=== PATIENT | male | born 1965 | race Caucasian/White ===

== ENCOUNTER 2016-11-12 20:56 | Inpatient (IN) ==
[2016-11-12] MEDS ORDERED: ATIVAN IV ONE (21:00)
[2016-11-12 21:40] LABS: BASO% 0.2 % (0.0-0.8); EOS# 0.01 X1000 (0.0-0.7); EOS% 0.1 % (0.0-10.0); HEMATOCRIT 36.5 % (42.0-52.0); HEMOGLOBIN 12.3 g/dL (14.0-18.0); LYMPH# 0.77 X1000 (1.2-3.4); LYMPH% 6.3 % (20.5-51.1); MANUAL DIFF NEEDED? NO; MCH 36.1 PG (27-31); MCHC 33.7 g/dL (33-37); MONO# 1.36 X1000 (0.11-0.59); MONO% 11.1 % (1.7-9.3); MPV 10.3 FL (7.4-10.4); NEUT% 82.3 % (42.2-75.2); PLT 230 X1000 (130-400); RBC 3.41 XMIL (4.7-6.1)
[2016-11-12 21:42] LABS: AGAP 15; ALBUMIN 4.1 g/dL (3.5-5.0); ALKALINE PHOSPHATASE 48 U/L (32-122); BUN 18 mg/dL (8-22); CALCIUM 9.5 mg/dL (8.8-10.2); CHLORIDE 103 mmol/L (98-107); COSMO 281; GOT 43 U/L (10-34); GPT 36 U/L (10-44); LIPASE 39 U/L (13-60); MAGNESIUM 1.4 mg/dL (1.5-2.7); POTASSIUM 3.5 mmol/L (3.5-5.1); SODIUM 140 mmol/L (136-145); TCO2 22 mmol/L (25-35); TOTAL BILIRUBIN 0.74 mg/dL (0.20-1.00); TOTAL PROTEIN 7.9 g/dL (6.3-8.3)
[2016-11-12] MEDS ORDERED: LABETALOL IV ONE (21:51)
[2016-11-12] MEDS ORDERED: MAGNESIUM SULFATE 2 GM/S.W.I. 2 GM/50 ML IVPB IV ONE (21:52)
--- NOTE | 2016-11-12 21:54 | PROVIDER DOCUMENTATION ---
This chart was entered by Kevin Lopez Scribe, acting as scribe for Con Marin MD. [id number] Abuse/Overdose - General Stated Complaint: etoh withdrawals Time Seen by Provider: 11/12/16 21:00 Source: patient, police Allergies/Adverse Reactions: Allergies Allergy/AdvReac Type Severity Reaction Status Date / Time No Known Allergies Allergy Verified 05/10/16 13:46 Home Medications: Home Medication List Medication Instructions Recorded Confirmed Last Taken Type Famotidine [Pepcid] 20 mg PO BID #30 tablet 05/10/16 Unknown Rx Tramadol [Ultram] 50 mg PO TID PRN PRN #30 tablet 05/10/16 Unknown Rx - History of Present Illness-Drug/Alcohol Nature of Presenting Problem: Pt is a 51 yom who presents to ER from detention with CC of etoh withdrawals. Pt states that he normally drinks 2 pints of alcohol per day, was arrested yesterday, and developed tachycardia and tremors this evening. This episode of drinking or use began:: this evening Severity: reports: moderate Situational problems related to:: reports: N/A Psychiatric Complaints: reports: other (DT) Associated Symptoms: reports: anxiety, muscle aches, nausea, weakness. denies: back/neck pain, chest pain, diarrhea, fatigue, vomiting Any injuries associated with this episode of intoxication?: No Similar Symptoms Previously?: Yes Recently seen or treated by another doctor?: No Review of Systems - Adult - REVIEW OF SYSTEMS - ADULT Constitutional: denies: chills, fever, fatique, night sweats, weight gain, weight loss Eyes: reports: no symptoms reported Ears, Nose, Mouth & Throat: reports: no symptoms reported Cardiovascular: reports: no symptoms reported Respiratory: reports: no symptoms reported Gastrointestinal: reports: nausea, poor appetite. denies: abdominal pain, hematemesis, constipation, diarrhea, difficulty swallowing, frequent heartburn, rectal bleeding, vomiting Genitourinary: reports: no symptoms reported Musculoskeletal: reports: muscle aches. denies: bone pain, back pain, frequent leg cramps, joint pain, joint swelling, muscle weakness, neck pain Integumentary: reports: no symptoms reported Neurological: reports: no symptoms reported Psychiatric: reports: no symptoms reported Endocrine: reports: no symptoms reported Hematologic/Lymphatic: reports: no symptoms reported Allergic/Immunologic: reports: no symptoms reported All Other Systems: Reviewed and Negative Past History - Adult - PAST MEDICAL HISTORY-ADULT Review of Records: reports: Nursing Assessment Review, Medications Reviewed Cardiovascular: reports: HTN - IMMUNIZATION STATUS Childhood Immunizations: See Nurse Assessment Flu Vaccine: See Nurse Assessment Physical Exam-General - PHYSICAL EXAM-ADULT Initial Vital Signs Reviewed: Yes - CONSTITUTIONAL General Appearance: appears well, alert, moderate distress - RESPIRATORY Respiratory: chest non-tender, lungs clear, normal breath sounds, no pleuratic chest pain, no respiratory distress, no accessory muscle use. negative: respiratory distress, decreased breath sounds, accessory muscle use, wheezing - CARDIOVASCULAR Cardiovascular: normal peripheral pulses, tachycardia. negative: regular rate, rhythm, bradycardia, irregularly irregular - GASTROINTESTINAL (ABDOMEN) Abdominal Exam: normal bowel sounds, non tender, soft, no organomegaly, no pulsatile mass. negative: guarding, rebound, tenderness - MUSCULOSKELETAL Extremity: other (tremulous). negative: deformity, erythema, inflammation, swelling, tenderness - PSYCHIATRIC Psych/Mental Status: normal thought content, normal thought process, oriented x 3, anxious, disheveled. negative: normal mood/affect Progress - PLAN OF CARE/RESULTS Progress/Plan/Lab Results: Vital Signs - 8 hr 11/12/16 21:00 Temperature 98.6 F Pulse Rate 96 H Respiratory Rate 18 Blood Pressure 163/95 O2 Sat by Pulse Oximetry 94 L Laboratory Results - last 24 hr 11/12/16 11/12/16 21:08 21:08 WBC 12.30 H RBC 3.41 L Hgb 12.3 L Hct 36.5 L MCV 107.0 H MCH 36.1 H MCHC 33.7 RDW Std Deviation 12.0 Plt Count 230 MPV 10.3 Neut % (Auto) 82.3 H Lymph % (Auto) 6.3 L [place] % (Auto) 11.1 H Eos % (Auto) 0.1 Baso % (Auto) 0.2 Neut # (Auto) 10.14 H Lymph # (Auto) 0.77 L [place] # (Auto) 1.36 H Eos # (Auto) 0.01 Baso # (Auto) 0.02 Sodium 140 Potassium 3.5 Chloride 103 Carbon Dioxide 22 L Anion Gap 15 BUN 18 Creatinine 0.9 Estimated GFR/1.73 m2 > 60 BUN/Creatinine Ratio 20 Glucose 93 Calculated Osmolality 281 Calcium 9.5 Magnesium 1.4 L Total Bilirubin 0.74 AST 43 H ALT 36 Alkaline Phosphatase 48 Total Protein 7.9 Albumin 4.1 Globulin 3.8 Albumin/Globulin Ratio 1.1 Lipase 39 Orders Category Date Time Status CBC WITH ELECTRONIC DIFF [HEME] Stat Lab 11/12/16 21:08 Completed CMP [COMPREHENSIVE METABOLIC PANEL] [CHEM] Stat Lab 11/12/16 21:08 Completed LIPASE [CHEM] Stat Lab 11/12/16 21:08 Completed MAGNESIUM [CHEM] Stat Lab 11/12/16 21:08 Completed Labetalol Med 11/12/16 21:51 Discontinued 100 mg IV NOW ONE Lorazepam [Ativan] Med 11/12/16 21:00 Discontinued 2 mg IV NOW ONE Magnesium Sulfate 2 gm/S.w.i. [Magnesium Sulfate 2 gm/S Med 11/12/16 21:52 Active .w.i] 2 gm in 50 ml IV NOW Result Diagrams: 11/12/16 21:08 11/12/16 21:08 - REASSESSMENT Reassessment #1 Time Reassessed: 21:53 (pt was talking to people who were not in the room) Status: other Departure - Departure Date of Disposition Decision: 11/12/16 Time of Disposition Decision: 21:53 DIAGNOSIS: Alcohol withdrawal delirium Disposition: ADMITTED INPATIENT 09 Certified Medical Emergency: Emergent Condition: Fair - Critical Care Note This patient required my direct & personal management of CC.: No This chart was documented by the indicated scribe, (Kevin Lopez Scribe) and accurately reflects the services I performed and decisions made by me, Con Skinner MD, as attested by the provider's signature.
[2016-11-12] MEDS ORDERED: FOLIC ACID 1 MG in NS 50 ML IV ONE (22:57)
[2016-11-12] MEDS ORDERED: ZOFRAN IV PRN (22:57)
[2016-11-12] MEDS ORDERED: SODIUM CHLORIDE 0.9% INJ SCH (22:57)
[2016-11-12] MEDS ORDERED: NS 1,000 ML IV ONE (22:57)
[2016-11-12] MEDS: THIAMINE 100 MG in NS 50 ML IV SCH (23:56)
[2016-11-13] MEDS: SODIUM CHLORIDE 0.9% INJ SCH ×2 (00:03→23:12)
[2016-11-13] MEDS: LOVENOX SUBQ SCH ×3 (00:03→22:13)
[2016-11-13] MEDS: NEXIUM IV SCH ×2 (00:05→23:12)
[2016-11-13] MEDS: ATIVAN IV PRN ×7 (00:06→23:12)
[2016-11-13] MEDS: NS 1,000 ML IV SCH ×5 (00:46→18:35)
--- NOTE | 2016-11-13 00:48 | HISTORY AND PHYSICAL ---
PRIMARY CARE PHYSICIAN: None. CHIEF COMPLAINT: Visual hallucinations and getting restless. HISTORY OF PRESENT STAY: Patient is a 52-year-old, male with a past medical history of hypertension. History is taken from ER notes and from ER physician, Dr. Lisa henry because this patient is not able to provide any information because he is still sleepy because of Ativan that he received in the ER. Apparently, he is a known chronic alcohol abuse. He usually apparently takes 3 pints of of vodka daily. He was arrested yesterday and [facility], so today this patient was brought to the hospital because he was becoming very restless and having some visual hallucinations. No seizures reported there in the [facility] or here in the hospital. We are going to admit this patient to the hospital for alcohol withdrawal. At the time of my dictation, he has received already 2 g of Ativan, so he is very sleepy, but calmed down. PAST MEDICAL HISTORY: Hypertension. PAST SURGICAL HISTORY, FAMILY HISTORY, ALLERGIES AND REVIEW OF SYSTEMS: Not possible to obtain because of the medical situation of the patient. As per ER note, the patient before took Ativan, reported that he used cocaine and marijuana and also drinks alcohol regularly daily. PHYSICAL EXAMINATION: VITAL SIGNS: Temperature 98.6 degrees, heart rate 99, respiratory rate 18, blood pressure 166/104, O2 saturation 94% on room air. GENERAL EXAMINATION: This is a 52-year-old, male, lying in bed, sedated, in no acute distress. HEENT: Head is normocephalic, atraumatic. Anicteric sclerae. Pale conjunctivae. Mucous membranes moist. NECK: Supple. No JVD noted. No carotid bruits. No lymphadenopathy. No thyromegaly. CARDIOVASCULAR: S1, S2 heard. No murmurs, gallops, or rubs. Regular rate and rhythm. RESPIRATORY: Clear bilaterally to auscultation. No work of breathing or using accessory muscles. ABDOMEN: Soft. Bowel sounds present. No organomegaly. EXTREMITIES: No clubbing, cyanosis, or edema. Peripheral pulses present in both legs. NEUROLOGICAL: Patient is sedated and not possible to perform any neurological examination. Pupils equal, round and reactive to light and accommodation. Patient withdrawn to pain. LABORATORY DATA: White cell count 12.30, hemoglobin 12.3, hematocrit 36.5, platelets at 30,000. BMP is okay with magnesium 1.4 and phosphorus 2.9. ASSESSMENT AND PLAN: Alcohol withdrawal. Patient is going to be admitted to the hospital. He is going to be sent to the intensive care unit and Ativan will be given every 1 hour p.r.n. for agitation. We are going to provide aggressive fluid resuscitation with normal saline at 150 mL/h after 2 L of normal saline bolus. We are going to put this patient on seizure precautions and aspiration precautions. We are going to replete electrolytes as needed. Further recommendations to follow according to the clinical situation of the patient. cc: Mukul Quigley MD MTDD
[2016-11-13 01:27] LABS: BILIRUBIN URINE NEGATIVE (NEGATIVE); BLOOD URINE NEGATIVE (NEGATIVE); COLOR YELLOW; GLUCOSE URINE NEGATIVE (NEGATIVE); LEUKOCYTES URINE NEGATIVE (NEGATIVE); NITRITE URINE NEGATIVE (NEGATIVE); PROTEIN URINE NEGATIVE (NEGATIVE); SP GRAVITY URINE 1.018; TURBIDITY URINE CLEAR (CLEAR); UR EPITHELIAL CELLS <10 /HPF (<10); URINE BACTERIA NEGATIVE /HPF; URINE CULTURE NEEDED? NO; URINE MICRO REVIEW NEEDED? NO; URINE RBC <10 /HPF (<10); URINE SOURCE CATH; URINE WBC <10 /HPF (<10); UROBILINOGEN URINE NORMAL (NORMAL)
[2016-11-13] MEDS: STERILE WATER INJ. INJ PRN ×3 (01:37→23:12)
[2016-11-13] MEDS: GEODON IM PRN ×4 (01:37→23:12)
[2016-11-13] MEDS: LABETALOL IV PRN (01:48)
[2016-11-13 04:26] LABS: AGAP 14; BUN 14 mg/dL (8-22); CALCIUM 8.5 mg/dL (8.8-10.2); CHLORIDE 105 mmol/L (98-107); COSMO 282; POTASSIUM 3.4 mmol/L (3.5-5.1); SODIUM 141 mmol/L (136-145); TCO2 22 mmol/L (25-35)
[2016-11-13 05:46] LABS: UR AMPHETAMINES QUAL NONE DETECTED (NONE DETECT); UR BARBITUATES QUAL NONE DETECTED (NONE DETECT); UR BENZODIAZEPIN QUAL PRESUMPTIVE POSITIVE (NONE DETECT); UR CANNABINOIDS QUAL NONE DETECTED (NONE DETECT); UR COCAINE QUAL NONE DETECTED (NONE DETECT); UR METHADONE QUAL NONE DETECTED (NONE DETECT); UR OPIATES QUAL NONE DETECTED (NONE DETECT); UR OXYCODONE QUAL NONE DETECTED (NONE DETECT); UR PCP QUAL NONE DETECTED (NONE DETECT)
[2016-11-13] MEDS: LIBRIUM PO SCH ×3 (08:01→17:12)
[2016-11-13 08:37] LABS: BASO% 0.1 % (0.0-0.8); EOS# 0.01 X1000 (0.0-0.7); EOS% 0.1 % (0.0-10.0); HEMATOCRIT 36.3 % (42.0-52.0); LYMPH# 1.12 X1000 (1.2-3.4); MANUAL DIFF NEEDED? YES; MCH 36.3 PG (27-31); MCHC 33.1 g/dL (33-37); MCV 109.7 FL (81-99); MONO# 2.07 X1000 (0.11-0.59); MONO% 12.9 % (1.7-9.3); NEUT% 79.9 % (42.2-75.2); PLT 213 X1000 (130-400); RBC 3.31 XMIL (4.7-6.1)
[2016-11-13 09:18] LABS: LYMPHS 9 % (21-51); MONO 10 % (1-9)
--- NOTE | 2016-11-13 09:59 | PROGRESS NOTE ---
DATE: 11/13/2016 SUBJECTIVE: A 51-year-old who was admitted yesterday. Long history of alcoholism. Apparently has a history of hypertension. Taken to the emergency room and the emergency room physician, Dr. Marin, the patient was not able to provide any information. He was still very sleepy. He got some Ativan in the emergency room. Noted to be a chronic alcohol abuser. Usually, apparently drinks 3 pints of vodka a day. Arrested yesterday and sent to residential. Today, brought into the hospital because he is very restless and visual hallucination, appears to be going into delirium tremens. Moved to the unit where he is in 4 point restraints. Program Analyst is here supervising. PHYSICAL EXAMINATION: General: On examination today, he is sleeping in 4 point restraints. Has a mask on because he has been spitting. Vital Signs: Temperature 97.5 degrees, pulse 100, respirations 24, and blood pressure 118/81. HEENT: Pupils are equal and round. CVP less than 6 cm. Lungs: Clear in all lung parikh anterolateral. Cardiovascular Examination: Regular rhythm and rate without murmur or S3. Is and Os: Urine output 2800 mL. Abdomen: Soft. Skin: Is warm and dry. LABORATORY DATA: White count 16,060, hematocrit 36, platelet count 213,000. Sodium 141, potassium 3.4, chloride 105, bicarb 22, BUN 14, creatinine 0.7, magnesium was 2, calcium 8.5. Urinalysis presumptive positive for benzodiazepines but he, I think, had been given some Ativan. ASSESSMENT AND PLAN: Alcohol withdrawal. It has been a couple of days, at least 72 hours. I think he is in delirium tremens at this point with hallucinations, very agitated. Continue benzodiazepine. He is on Librium 50 mg three times a day. We will use Ativan as needed. He is getting enough fluid, normal saline at 150 mL an hour. Getting thiamine and a multivitamin with folic acid 1 mg daily. He was supplemented some magnesium. Continue present course. We will supplement a little bit of potassium as needed. cc: Ayo Hackett MD
[2016-11-13] MEDS: POTASSIUM CHLORIDE 20 MEQ/SWI 20 MEQ/100 ML IVPB IV SCH ×2 (10:20→12:20)
[2016-11-13] MEDS: THIAMINE 100 MG in NS 50 ML IV SCH ×2 (21:45→22:14)
[2016-11-14] MEDS: ATIVAN IV PRN ×2 (00:19→01:17)
[2016-11-14] MEDS: NS 1,000 ML IV SCH ×6 (00:24→23:21)
[2016-11-14] MEDS ORDERED: PHENOBARBITAL IV ONE ×2 (01:57→06:55)
[2016-11-14] MEDS: VALIUM IV SCH ×5 (02:10→17:04)
[2016-11-14] MEDS: PHENOBARBITAL IV ONE ×2 (02:54→05:40)
[2016-11-14 05:18] LABS: BASO% 0.2 % (0.0-0.8); EOS# 0.03 X1000 (0.0-0.7); EOS% 0.2 % (0.0-10.0); HEMOGLOBIN 12.5 g/dL (14.0-18.0); IMM GRAN# 0.11 X1000 (0.0-0.04); IMM GRAN% 0.7 % (0.0-0.5); LYMPH# 1.97 X1000 (1.2-3.4); LYMPH% 11.7 % (20.5-51.1); MANUAL DIFF NEEDED? NO; MCH 35.3 PG (27-31); MCHC 32.1 g/dL (33-37); MCV 110.2 FL (81-99); MONO# 2.11 X1000 (0.11-0.59); MONO% 12.6 % (1.7-9.3); MPV 10.1 FL (7.4-10.4); NEUT% 74.6 % (42.2-75.2); PLT 239 X1000 (130-400); RBC 3.54 XMIL (4.7-6.1)
[2016-11-14 05:38] LABS: AGAP 10; BUN 7 mg/dL (8-22); CALCIUM 8.5 mg/dL (8.8-10.2); CHLORIDE 106 mmol/L (98-107); COSMO 285; MAGNESIUM 1.9 mg/dL (1.5-2.7); POTASSIUM 3.9 mmol/L (3.5-5.1); SODIUM 143 mmol/L (136-145); TCO2 27 mmol/L (25-35)
--- NOTE | 2016-11-14 07:47 | PROGRESS NOTE ---
DATE: 11/20/2016 SUBJECTIVE: He is sleeping. He is still in 4 point restraints. He pulled out his Anand catheter and had some bleeding from the urethra which has stopped. They did irrigate it. OBJECTIVE: Temp 97.2 degrees, pulse 107, respirations 19, blood pressure 133/82. Lungs: Are clear in all lung parikh. Cardiovascular: Regular rhythm and rate without murmur or S3. Abdomen: Soft. Skin is warm and dry. LAB: Urine output: 5.2 L. White count 78417, hematocrit 39, platelet count 239,000, sodium 143, potassium 3.9, chloride 106, bicarb 27, BUN 7, creatinine 0.6, phosphorus was 4.4, calcium 8.5. ASSESSMENT AND PLAN: Alcohol withdrawal delirium tremens. Continue his IV benzodiazepines with Ativan and phenobarbital. He pulled out his Anand catheter. Appears to have had some bleeding for a time; this seems to have stopped. We will leave the Anand catheter out. Getting Librium 3 times a day and actually used Ativan. The phenobarbital has worked well. Try to avoid using Geodon. Still requires four-point restraints. Reviewed his orders. I do not see any change. He is getting the thiamine. He is getting folate and multivitamin. cc: Ayo Hackett MD
[2016-11-14] MEDS: LIBRIUM PO SCH ×3 (08:24→17:38)
[2016-11-14] MEDS: GEODON IM PRN (17:34)
[2016-11-14] MEDS: STERILE WATER INJ. INJ PRN (17:34)
[2016-11-14] MEDS: NEXIUM IV SCH (23:21)
[2016-11-14] MEDS: LOVENOX SUBQ SCH (23:21)
[2016-11-14] MEDS: THIAMINE 100 MG in NS 50 ML IV SCH (23:21)
[2016-11-14] MEDS: SODIUM CHLORIDE 0.9% INJ SCH (23:21)
[2016-11-15] MEDS: NS 1,000 ML IV SCH ×6 (01:53→23:29)
[2016-11-15] MEDS: PHENOBARBITAL IV PRN (04:55)
[2016-11-15] MEDS: VALIUM IV SCH ×5 (05:26→22:05)
[2016-11-15 05:48] LABS: BASO% 0.1 % (0.0-0.8); EOS# 0.01 X1000 (0.0-0.7); EOS% 0.1 % (0.0-10.0); HEMATOCRIT 35.3 % (42.0-52.0); HEMOGLOBIN 11.6 g/dL (14.0-18.0); IMM GRAN# 0.03 X1000 (0.0-0.04); IMM GRAN% 0.2 % (0.0-0.5); LYMPH# 1.75 X1000 (1.2-3.4); LYMPH% 13.9 % (20.5-51.1); MANUAL DIFF NEEDED? YES; MCH 35.4 PG (27-31); MCHC 32.9 g/dL (33-37); MCV 107.6 FL (81-99); MONO# 2.13 X1000 (0.11-0.59); MPV 10.7 FL (7.4-10.4); NEUT% 68.7 % (42.2-75.2); PLT 246 X1000 (130-400); RBC 3.28 XMIL (4.7-6.1)
[2016-11-15 06:23] LABS: AGAP 10; BUN 10 mg/dL (8-22); CALCIUM 8.1 mg/dL (8.8-10.2); CHLORIDE 104 mmol/L (98-107); COSMO 277; MAGNESIUM 1.8 mg/dL (1.5-2.7); POTASSIUM 3.2 mmol/L (3.5-5.1); SODIUM 140 mmol/L (136-145); TCO2 26 mmol/L (25-35)
[2016-11-15 06:57] LABS: BANDS 8 % (0-1); HYPOCHROM 1+; LYMPHS 14 % (21-51); MONO 10 % (1-9)
[2016-11-15] MEDS: LIBRIUM PO SCH ×3 (09:28→16:57)
--- NOTE | 2016-11-15 13:57 | PROGRESS NOTE ---
DATE: 11/15/2016 Mr. Alegria is still in 4 point restraints. He is still very confused, still hallucinating. Temp 98.7 degrees, pulse 73, respirations 13 blood pressure 143/98.HEENT: Pupils are equal, round. Lungs: Are clear in all lung parikh. Cardiovascular: Regular rhythm and rate without murmur or S3. Abdomen: Soft. Skin: Is warm and dry. Urine output 2500 mL. LAB: White count 55042, hematocrit 35, platelet count 246,000. Sodium 140, potassium 3.2, chloride 104, BUN 10, creatinine 0.5, calcium 8.10. ASSESSMENT AND PLAN: Alcohol withdrawal, delirium tremens, alcoholic hepatitis. Continue benzodiazepines and phenobarb. He requires 4 point restraint. I will supplement electrolytes and some potassium. His magnesium was 1.8. Review of orders. I do not see any change. cc: Ayo Hackett MD
[2016-11-15] MEDS: POTASSIUM CHLORIDE 20 MEQ/SWI 20 MEQ/100 ML IVPB IV SCH ×2 (14:00→16:56)
[2016-11-15] MEDS: THIAMINE 100 MG in NS 50 ML IV SCH (22:04)
[2016-11-15] MEDS: LOVENOX SUBQ SCH (22:04)
[2016-11-15] MEDS: GEODON IM PRN (22:38)
[2016-11-15] MEDS: SODIUM CHLORIDE 0.9% INJ SCH (22:38)
[2016-11-15] MEDS: NEXIUM IV SCH (22:38)
[2016-11-16] MEDS: VALIUM IV SCH (03:06)
[2016-11-16] MEDS: LABETALOL IV PRN (03:11)
[2016-11-16 05:20] LABS: AGAP 10; ALBUMIN 2.9 g/dL (3.5-5.0); ALKALINE PHOSPHATASE 39 U/L (32-122); BUN 8 mg/dL (8-22); CALCIUM 8.2 mg/dL (8.8-10.2); CHLORIDE 104 mmol/L (98-107); COSMO 280; GOT 47 U/L (10-34); GPT 28 U/L (10-44); MAGNESIUM 1.8 mg/dL (1.5-2.7); POTASSIUM 3.3 mmol/L (3.5-5.1); SODIUM 142 mmol/L (136-145); TCO2 28 mmol/L (25-35); TOTAL BILIRUBIN 0.37 mg/dL (0.20-1.00); TOTAL PROTEIN 6.2 g/dL (6.3-8.3)
[2016-11-16] MEDS: NS 1,000 ML IV SCH ×4 (05:59→19:47)
--- NOTE | 2016-11-16 07:46 | PROGRESS NOTE ---
DATE: 11/16/2016 SUBJECTIVE: Mr. Alegria is in 4-point restraints, but he is resting comfortably, less agitated. OBJECTIVE: Vital Signs: Temp 98.6 degrees, pulse 72, respirations 10, blood pressure 180/22. Lungs: Clear in all lung parikh. Cardiovascular: Regular rhythm and rate without murmur or S3. Abdomen: Soft. Skin: Warm and dry. Urine output is 2800. LABORATORY DATA: Reviewed from 11/15/2016. Sodium 142, potassium 3.3, chloride 104, bicarb 28, blood sugar 70. AST 47, ALT 28. His magnesium was 1.8. ASSESSMENT AND PLAN: Alcohol withdrawal, delirium tremens, alcohol hepatitis. He is showing improvement. Continue benzodiazepines and phenobarbital. We will supplement his electrolytes with supplements of potassium this morning. Otherwise, continue present intravenous fluids, which are normal saline at 150 mL an hour. cc: Ayo Hackett MD
[2016-11-16] MEDS: POTASSIUM CHLORIDE 20 MEQ/SWI 20 MEQ/100 ML IVPB IV SCH ×2 (08:29→09:52)
[2016-11-16] MEDS: LIBRIUM PO SCH ×3 (08:31→17:07)
[2016-11-16] MEDS ORDERED: ATIVAN IV PRN (09:29)
[2016-11-16 09:33] LABS: ALLEN TEST YES; BE -1.3 mmoll (-3.0-3.0); BLOOD TYPE ARTERIAL; DRAW SITE L RADIAL; METHB 1.1 % (0.0-1.5); O2(CT) 16.6 mL/dL (15.0-23.0); PO2(98.6) 79 mmHg (60-100); SAMPLE BLOOD; SAO2 97.7 % (95.0-100.0); THB 12.4 g/dL (11.5-17.4)
[2016-11-16 09:35] LABS: MODALITY CANNULA; PCO2(98.6) 85 mmHg (35-45); pH(98.6) 7.15 (7.35-7.45)
[2016-11-16] MEDS ORDERED: NS 500 ML IV ONE (09:45)
[2016-11-16 12:08] LABS: ALLEN TEST YES; BE -2.1 mmoll (-3.0-3.0); BLOOD TYPE ARTERIAL; DRAW SITE L RADIAL; METHB 1.2 % (0.0-1.5); PO2(98.6) 51 mmHg (60-100); SAMPLE BLOOD; SAO2 93.1 % (95.0-100.0); THB 16.6 g/dL (11.5-17.4); pH(98.6) 7.21 (7.35-7.45)
[2016-11-16 12:11] LABS: MODALITY CANNULA; PCO2(98.6) 70 mmHg (35-45)
[2016-11-16] MEDS: PHENOBARBITAL IV PRN (18:00)
[2016-11-16] MEDS ORDERED: TYLENOL PR ONE (20:02)
[2016-11-16] MEDS: LOVENOX SUBQ SCH (22:23)
[2016-11-16] MEDS: THIAMINE 100 MG in NS 50 ML IV SCH (22:23)
[2016-11-17] MEDS: NEXIUM IV SCH ×2 (00:02→23:21)
[2016-11-17] MEDS: SODIUM CHLORIDE 0.9% INJ SCH ×2 (00:02→23:21)
[2016-11-17] MEDS: NS 1,000 ML IV SCH ×6 (02:01→21:43)
[2016-11-17 04:50] LABS: ALLEN TEST YES; BE 4.2 mmoll (-3.0-3.0); BLOOD TYPE ARTERIAL; DRAW SITE R RADIAL; METHB 1.6 % (0.0-1.5); O2(CT) 17.4 mL/dL (15.0-23.0); PO2(98.6) 152 mmHg (60-100); SAMPLE BLOOD; SAO2 99.6 % (95.0-100.0); THB 12.6 g/dL (11.5-17.4); pH(98.6) 7.32 (7.35-7.45)
[2016-11-17 04:51] LABS: MODALITY VENTIMASK; PCO2(98.6) 62 mmHg (35-45)
[2016-11-17 07:46] LABS: BASO% 0.1 % (0.0-0.8); EOS# 0.02 X1000 (0.0-0.7); EOS% 0.1 % (0.0-10.0); HEMATOCRIT 34.7 % (42.0-52.0); HEMOGLOBIN 11.4 g/dL (14.0-18.0); IMM GRAN# 0.03 X1000 (0.0-0.04); IMM GRAN% 0.2 % (0.0-0.5); LYMPH# 1.89 X1000 (1.2-3.4); LYMPH% 11.2 % (20.5-51.1); MANUAL DIFF NEEDED? YES; MCH 35.1 PG (27-31); MCHC 32.9 g/dL (33-37); MCV 106.8 FL (81-99); MONO# 2.06 X1000 (0.11-0.59); MONO% 12.2 % (1.7-9.3); MPV 10.7 FL (7.4-10.4); NEUT% 76.2 % (42.2-75.2); PLT 331 X1000 (130-400); RBC 3.25 XMIL (4.7-6.1)
--- NOTE | 2016-11-17 07:57 | PROGRESS NOTE ---
DATE: 11/17/2016 Mr. Alegria is still in 4 point restraints. He is waking up some. He has had some fever of 102. Temp did go down, dipped low and had put him on warming blankets. Still getting IV Ativan at fairly good doses. We did back off as he became obtunded. OBJECTIVE: Vital Signs: Temperature 96.1 degrees, pulse 66, respirations 16, blood pressure 126/81. HEENT: Pupils are equal, round. Lungs: Are clear in all lung parikh. Cardiovascular: Regular rhythm and rate without murmur or S3. Abdomen: Soft. Skin: Warm and dry. Urine output is 3400 mL. LAB: From the 2nd was reviewed. Hematocrit stable. Chemistries looked good from 3rd. We are supplementing potassium and his magnesium was 1.8. ASSESSMENT AND PLAN: 1. Alcohol withdrawal, delirium tremens. 2. Alcoholic hepatitis, able to back down on his sedation. He has had fever. I am going to check a chest x-ray, probably put him on empiric antibiotic. He has potential for aspiration pneumonia. Continue benzodiazepines and phenobarbital. 3. Fever. Check a chest x-ray and recheck some labs this morning as well. We can send urine for UA and culture. cc: Ayo Hackett MD
[2016-11-17 08:09] LABS: BANDS 8 % (0-1); LYMPHS 6 % (21-51); MONO 6 % (1-9)
[2016-11-17 08:15] LABS: AGAP 10; ALBUMIN 2.5 g/dL (3.5-5.0); ALKALINE PHOSPHATASE 38 U/L (32-122); BUN 8 mg/dL (8-22); CALCIUM 8.2 mg/dL (8.8-10.2); CHLORIDE 103 mmol/L (98-107); COSMO 279; GOT 37 U/L (10-34); GPT 24 U/L (10-44); POTASSIUM 3.2 mmol/L (3.5-5.1); SODIUM 141 mmol/L (136-145); TCO2 28 mmol/L (25-35); TOTAL BILIRUBIN 0.29 mg/dL (0.20-1.00); TOTAL PROTEIN 5.4 g/dL (6.3-8.3)
--- NOTE | 2016-11-17 08:15 | Diag Imaging Result Doc PS360 ---
EXAM: CHEST-PORTABLE - 11/17/2016 HISTORY: fever TECHNIQUE: Portable chest 7:40 AM COMPARISON: 11/19/2015 FINDINGS: Heart size is normal. There is consolidation at the mid and lower lung on the left, suspicious for pneumonia. There is apparent atelectasis of the right lower lobe. There are apparent emphysematous changes, although these were more conspicuous on the previous exam. There is possible small left pleural effusion. There is no pneumothorax seen. IMPRESSION: Mid and lower lung pneumonia on the left. Atelectasis of right lower lobe. Underlying right lower lobe pneumonia is not excluded. Electronically signed by Michael Zepeda 11/17/2016 8:13 AM
[2016-11-17] MEDS: LIBRIUM PO SCH ×3 (08:27→16:20)
[2016-11-17 08:43] LABS: URINE CULTURE NEEDED? NO; URINE MICRO REVIEW NEEDED? NO; URINE SOURCE CATH
[2016-11-17 08:48] LABS: BILIRUBIN URINE NEGATIVE (NEGATIVE); BLOOD URINE SMALL (NEGATIVE); COLOR YELLOW; GLUCOSE URINE NEGATIVE (NEGATIVE); LEUKOCYTES URINE NEGATIVE (NEGATIVE); NITRITE URINE NEGATIVE (NEGATIVE); PROTEIN URINE NEGATIVE (NEGATIVE); SP GRAVITY URINE 1.019; TURBIDITY URINE CLEAR (CLEAR); UR EPITHELIAL CELLS <10 /HPF (<10); URINE BACTERIA NEGATIVE /HPF; URINE RBC <10 /HPF (<10); URINE WBC <10 /HPF (<10); UROBILINOGEN URINE 4 mg/dL (NORMAL)
[2016-11-17] MEDS: THIAMINE 100 MG in NS 50 ML IV SCH (23:20)
[2016-11-17] MEDS: LOVENOX SUBQ SCH (23:21)
[2016-11-18] MEDS: NS 1,000 ML IV SCH ×4 (04:46→19:15)
[2016-11-18] MEDS: LIBRIUM PO SCH ×3 (08:49→17:02)
--- NOTE | 2016-11-18 10:19 | PROGRESS NOTE ---
DATE: 11/18/2016 SUBJECTIVE: He is awake and much more calm. He is asking for some water. Will put him on full liquids. He is very weak. I think he knows he is in the hospital. OBJECTIVE: Vital signs: Temperature 97.0 degrees, pulse 69, respirations 16, blood pressure 149/100. Weight 160 pounds. HEENT: Pupils are equal, round. Lungs: Clear in all lung parikh. Cardiovascular: Regular rhythm and rate without murmur or S3. Abdomen: Soft. Skin: Warm and dry. Intake and output: Output is 3 L. LAB: Reviewed from yesterday. Hematocrit is stable at 34. Chemistries unremarkable except for potassium 3.2. ASSESSMENT AND PLAN: Alcohol withdrawal and alcoholic hepatitis, improved. He went through delirium tremens. Seems to be improved. Still very weak. He appeared to have a right lower lobe pneumonia which is possible but he remains afebrile. We will continue present regimen and try and encourage strength. Continue thiamine daily. Put him on a full liquid diet. Clinically he remains afebrile. We are pending another chest x-ray. He is off of antibiotics. cc: Ayo Hackett MD
[2016-11-18] MEDS: TYLENOL PO PRN (21:12)
[2016-11-18] MEDS: LOVENOX SUBQ SCH (22:57)
[2016-11-18] MEDS: THIAMINE 100 MG in NS 50 ML IV SCH (22:57)
[2016-11-18] MEDS: NEXIUM IV SCH (22:58)
[2016-11-18] MEDS: SODIUM CHLORIDE 0.9% INJ SCH (22:58)
[2016-11-19] MEDS: NS 1,000 ML IV SCH ×4 (01:16→23:06)
--- NOTE | 2016-11-19 09:29 | PROGRESS NOTE ---
DATE: 11/19/2016 The patient is much better, awake and alert. He asking, he is still having some visual hallucination. He calm out of four-point restraint. He is eating. EXAMINATION: Vital Signs: Temperature 97.6 degrees, pulse 70, respirations 17, blood pressure 166/101. HEENT: Pupils are equal and round. Lungs: Clear in all lung parikh. Cardiovascular: Regular rhythm and rate without murmur or S3. Abdomen: Soft. Skin is warm and dry. Urine output over 7 L. LAB: Reviewed and potassium is 3.2, creatinine 0.4. We will continue to supplement potassium. ASSESSMENT/PLAN: Alcohol withdrawal prolonged delirium tremens. It is improving. Still visual hallucinations, very weak. Encourage eating, increase his activity and strength. May be able to move to the floor soon. Will supplement his potassium. cc: Ayo Hackett MD
[2016-11-19] MEDS: KLOR-CON PO SCH ×2 (09:36→20:09)
[2016-11-19] MEDS: LIBRIUM PO SCH ×3 (09:46→16:18)
[2016-11-19] MEDS: TYLENOL PO PRN ×2 (13:23→20:09)
[2016-11-19] MEDS: LABETALOL IV PRN (20:09)
[2016-11-19] MEDS: LOVENOX SUBQ SCH (23:06)
[2016-11-19] MEDS: NEXIUM IV SCH (23:07)
[2016-11-19] MEDS: THIAMINE 100 MG in NS 50 ML IV SCH (23:07)
[2016-11-19] MEDS: SODIUM CHLORIDE 0.9% INJ SCH (23:07)
[2016-11-20] MEDS: NS 1,000 ML IV SCH ×2 (05:30→11:53)
[2016-11-20] MEDS: KLOR-CON PO SCH ×2 (08:21→21:05)
[2016-11-20] MEDS: LIBRIUM PO SCH ×3 (08:21→18:21)
[2016-11-20] MEDS: LABETALOL IV PRN ×2 (08:26→11:56)
--- NOTE | 2016-11-20 14:08 | PROGRESS NOTE ---
DATE: 11/20/2016 SUBJECTIVE: He is doing much better, very cooperative, pleasant. Very weak and puny at this point. OBJECTIVE: Temperature is 98.1, pulse 64, respirations 14, blood pressure 169/107. Pupils are equal and round. Lungs are clear in all lung parikh. Cardiovascular: Regular rate and rhythm without murmur or S3. Abdomen: Soft. Skin: Warm and dry. Urine output over 1400 mL. DIAGNOSTIC DATA: Labs reviewed from 11/17/2016 look good. Potassium still marginal or low. ASSESSMENT AND PLAN: Alcohol withdrawal, prolonged delirium tremens, is improving. Still visual hallucinations. Weak. But he is improved. He has not had any hallucinations in the last 12 hours. Encourage him to eat and gain his strength and making progress on moving to the regular floor. Keep supplementing potassium. We will turn his fluids down. cc: Ayo Hackett MD
[2016-11-20] MEDS: TYLENOL PO PRN (21:58)
[2016-11-20] MEDS ORDERED: PROTONIX IV SCH (23:45)
[2016-11-20] MEDS: LOVENOX SUBQ SCH (23:46)
[2016-11-21] MEDS: SODIUM CHLORIDE 0.9% INJ SCH (00:06)
[2016-11-21] MEDS: THIAMINE 100 MG in NS 50 ML IV SCH (00:07)
[2016-11-21] MEDS: LIBRIUM PO SCH ×3 (08:25→21:42)
[2016-11-21] MEDS: KLOR-CON PO SCH ×2 (08:25→21:42)
[2016-11-21] MEDS: TYLENOL PO PRN ×2 (10:57→22:09)
--- NOTE | 2016-11-21 11:38 | PROGRESS NOTE ---
DATE: 11/21/2016 SUBJECTIVE: This patient is doing much better. He is answering my questions properly. As per the patient, he is not hallucinating anymore. He is very weak. I will ask for physical therapy. As per the patient, [place] He has a daughter and he smokes marijuana sometimes. He is willing to stop drinking. OBJECTIVE: Vital Signs: Temperature 97.5, pulse 86, respiratory rate 20, blood pressure 131/81, oxygen saturation 94% on room air. HEENT: Head normocephalic. No trauma. PERRLA. Neck: Supple. No JVD. No masses. Central trachea. Chest: Clear to auscultation. No wheezing. No rales. Abdomen: Soft, nontender, nondistended. No hepatosplenomegaly. Extremities: No edema. No clubbing. No cyanosis. Neurological: The patient is alert and oriented x3. No focal neurological deficits. Generalized weakness. LABORATORY: No lab work done today. ASSESSMENT AND PLAN: 1. Alcohol withdrawal with prolonged delirium tremens, this is much better. He is not having hallucinations anymore. He is still complaining of generalized weakness. He cannot walk at this moment, I have requested physical therapy evaluation for this patient. 2. Alcohol abuse. This patient has been highly advised against alcohol abuse. I will continue with daily cessation education. 3. Drug abuse, marijuana. This patient has been highly advised against marijuana use. We will continue with daily education. 4. Hypertension. I have started this patient on amlodipine. Will monitor the blood pressure. DISPOSITION: Once this patient is better and he can walk and do his daily activities by himself, we are going to be able to discharge this patient. Since he does not have insurance, probably this patient will go to a [facility], at least this is what he told me that the plan is with his daughter. cc: Cole Cardoso MD
[2016-11-21] MEDS ORDERED: NS 1,000 ML ONE (14:47)
[2016-11-21] MEDS ORDERED: NS 1,000 ML IV ONE (14:48)
[2016-11-21 16:46] LABS: HEMATOCRIT 35.1 % (42.0-52.0); HEMOGLOBIN 11.6 g/dL (14.0-18.0)
[2016-11-21 16:54] LABS: INR 1.07; PROTIME 11.3 Seconds (9.2-11.7); PTT 29.3 Seconds (22.0-36.0)
--- NOTE | 2016-11-21 20:17 | CONSULTATION ---
DATE OF CONSULTATION: 11/21/2016 CONSULTING PHYSICIAN: Cole Cardoso MD with Hospital [facility]. REASON FOR CONSULTATION: Hematuria following Anand removal. HISTORY OF PRESENT ILLNESS: A 51-year-old male who was recently admitted on 11/12/2016 secondary to alcohol withdrawal with hallucinations. He has had Anand catheter in place which was removed. That was followed by gross hematuria. He denies similar episodes in the past. He denies having a Anand catheter in the past. He denies having UTIs or trauma in the past. He reports that his urine is still bloody but is getting clearer over the last 2-3 times he voided. He denies fevers, chills, or flank pain. He reports he is able to void freely and denies retaining urine. PAST MEDICAL HISTORY: Hypertension. PAST SURGICAL HISTORY: Right elbow ORIF secondary to injury. ALLERGIES: No known drug allergies. MEDICATIONS: None. SOCIAL HISTORY: He consumes quite a bit of alcohol, he denies illicit drug use. He is homeless but has a daughter. FAMILY HISTORY: Denies malignancies. REVIEW OF SYSTEMS: Review of 12 systems was negative except for what is noted in the HPI. PHYSICAL EXAMINATION: Vital Signs: T 98.0 degrees, P 81, BP 132/81. General: No acute distress. HEENT: Normocephalic, atraumatic. Cardiovascular: Regular rhythm. Pulmonary: Bilateral breath sounds. Abdomen: Nontender, nondistended. Genitourinary: Normal phallus. Normal meatus. No stenosis is noted. Testes descended bilaterally without masses. Digital rectal examination: Patient declined at this time. Inguinal: No groin lymphadenopathy. Neurologic: Alert and oriented x3. Psychiatric: Appropriate mood and affect. PERTINENT LABORATORY DATA: White cell count of 17,000, hematocrit of 35, creatinine of 0.4 on 11/17/2016. PERTINENT IMAGING: None. ASSESSMENT: A 51-year-old male with gross hematuria following Anand removal. He denies similar episodes in the past. We discussed it is likely related to the catheter trauma. The fact that he is progressing in his urine has improved is encouraging. I have discussed with the patient that we could proceed with workup versus observation and I recommended the latter. He is in agreement. PLAN: 1. No urologic intervention needed at this point. 2. He will save his urine for me to check tomorrow on 11/22/2016. 3. If his urine continues to clear, he will not need further workup and be ready for discharge per our hospitalist colleagues. Thank you for the consultation. cc: Abel Rodríguez MD
[2016-11-22 06:17] LABS: MANUAL DIFF NEEDED? NO
[2016-11-22 06:23] LABS: BASO% 1.1 % (0.0-0.8); EOS# 0.44 X1000 (0.0-0.7); EOS% 4.7 % (0.0-10.0); HEMATOCRIT 32.3 % (42.0-52.0); HEMOGLOBIN 10.7 g/dL (14.0-18.0); IMM GRAN# 0.41 X1000 (0.0-0.04); IMM GRAN% 4.4 % (0.0-0.5); LYMPH# 2.15 X1000 (1.2-3.4); LYMPH% 22.8 % (20.5-51.1); MCH 34.7 PG (27-31); MCHC 33.1 g/dL (33-37); MCV 104.9 FL (81-99); MONO# 1.22 X1000 (0.11-0.59); MPV 10.2 FL (7.4-10.4); PLT 409 X1000 (130-400); RBC 3.08 XMIL (4.7-6.1)
[2016-11-22 06:46] LABS: AGAP 9; ALBUMIN 2.8 g/dL (3.5-5.0); ALKALINE PHOSPHATASE 48 U/L (32-122); BUN 12 mg/dL (8-22); CALCIUM 9.8 mg/dL (8.8-10.2); CHLORIDE 101 mmol/L (98-107); COSMO 287; GOT 26 U/L (10-34); GPT 17 U/L (10-44); POTASSIUM 4.4 mmol/L (3.5-5.1); SODIUM 144 mmol/L (136-145); TCO2 34 mmol/L (25-35); TOTAL BILIRUBIN 0.14 mg/dL (0.20-1.00); TOTAL PROTEIN 6.1 g/dL (6.3-8.3)
[2016-11-22] MEDS: CENTRUM SILVER PO SCH (08:34)
[2016-11-22] MEDS: LIBRIUM PO SCH ×3 (08:34→16:33)
[2016-11-22] MEDS: VITAMIN B-1 PO SCH (08:34)
[2016-11-22] MEDS: NORVASC PO SCH (08:34)
[2016-11-22] MEDS: KLOR-CON PO SCH ×2 (08:34→20:17)
[2016-11-22] MEDS: NASONEX NASAL SPRAY NAS SCH (08:35)
--- NOTE | 2016-11-22 12:52 | PROGRESS NOTE ---
DATE: 11/22/2016 SUBJECTIVE: This patient is doing much better. He is answering all of my questions properly. As per the patient, he is not hallucinating anymore. He is weak and physical therapy is on board. As per the patient, he lives in a tent in the [facility]. He has a daughter and the plan is to go to the [facility] after discharge. He smokes marijuana and he is willing to stop drinking. OBJECTIVE: Vital Signs: Temperature 98 degrees, pulse 78, respiratory rate 21, blood pressure 123/70, oxygen saturation 95% on room air. HEENT: Head normocephalic. No trauma. PERRLA. Neck: Supple. No JVD. No masses. Central trachea. Chest: Clear to auscultation. No wheezing. No rales. Abdomen: Soft, nontender, nondistended. No hepatosplenomegaly. Extremities: No edema. No clubbing. No cyanosis. Neurological: The patient is alert and oriented x3. No focal deficits. LABORATORY: WBC 9.4, hemoglobin 10.7, hematocrit 32.3, platelets 409,000. Sodium 144, potassium 4.4, chloride 101, potassium 34, BUN 12, creatinine 0.7, glucose 98, calcium 9.8, albumin 2.8. ASSESSMENT AND PLAN: 1. Alcohol withdrawal with prolonged delirium tremens. This is much better. He is not having hallucinations anymore. He is still complaining of generalized weakness. Physical therapy is on board. 2. Gross hematuria. Urology department is on board. Probably this is secondary to Anand catheter removal/trauma. We will follow their recommendations. 3. Alcohol abuse. This patient has been highly advised against alcohol abuse. I will continue with daily cessation education. 4. Drug abuse, marijuana. As per the patient, this is the only recreational drug that he uses. He has been highly advised against drug abuse. I will continue with daily cessation education as well. 5. Hypertension. Blood pressure is better. Will continue to monitor. cc: Cole Cardoso MD
[2016-11-23 06:39] LABS: HEMATOCRIT 31.9 % (42.0-52.0); HEMOGLOBIN 10.4 g/dL (14.0-18.0)
[2016-11-23 07:27] VITALS: BP 112/73
[2016-11-23] MEDS: KLOR-CON PO SCH (08:03)
[2016-11-23] MEDS: CENTRUM SILVER PO SCH (08:03)
[2016-11-23] MEDS: NASONEX NASAL SPRAY NAS SCH (08:03)
[2016-11-23] MEDS: NORVASC PO SCH (08:03)
[2016-11-23] MEDS: LIBRIUM PO SCH ×3 (08:03→16:07)
[2016-11-23] MEDS: VITAMIN B-1 PO SCH (08:03)
[2016-11-23] MEDS: TYLENOL PO PRN (11:14)
--- NOTE | 2016-11-23 13:13 | PROGRESS NOTE ---
DATE: 11/23/2016 SUBJECTIVE: Mr. Alegria reports his urine has cleared up, but then after having a hard bowel movement, he had 1 episode of pink tinged urine. He is denying voiding complaints at this point. OBJECTIVE: Vital Signs: T 97.4, P 91, BP 112/73. General: No acute distress. Abdomen: Nontender, nondistended. ASSESSMENT: A 51-year-old male, status post traumatic urethral injury after Anand catheter removal, which appears to be resolving. I have explained to the patient importance of trying not to strain and consuming plenty of fluids. He has our information number should his condition worsen. PLAN: He will return to clinic as needed if problems arise. cc: Abel Rodríguez MD
--- NOTE | 2016-11-23 17:31 | DISCHARGE SUMMARY ---
ADMISSION DATE: 11/12/2016 DISCHARGE DATE: 11/23/2016 CONSULTATIONS: Abel Rodríguez MD with Urology. PERTINENT PROCEDURES: Chest x-ray showed mid and lower lung pneumonia on the left and atelectasis on the right lower lobe. Underlying right lower lobe pneumonia is not excluded. DISCHARGE DIAGNOSES: 1. Alcohol withdrawal with prolonged delirium tremens, improved. He has been working with Physical Therapy. He is homeless. He is being discharged to the [facility]. 2. Gross hematuria evaluated by Dr. Rodríguez. He felt it was related to catheter trauma. He is progressing. His urine has improved and his urine continues to clear. No urologic intervention was needed. 3. Alcohol abuse. The patient has been educated about abstinence daily. 4. Drug abuse, marijuana. The patient has been advised again about daily abstinence. 5. Hypertension improved. HOSPITAL COURSE: Mr. Alegria is a 51-year-old, male who carries a past medical history of hypertension. His initial history was taken from ER notes and from the ER physician, Dr. Erickson, because the patient was unable to provide any information secondary to him being sleepy from Ativan that he received in the ED. He is known for chronic alcohol abuse. He usually drinks 3 pints of vodka daily. He was arrested the day before his admission. He was sent to assisted and was brought to the hospital because he was becoming very restless and having some visual hallucinations. No seizures were reported in the assisted or while in the hospital. He was admitted for alcohol withdrawal. He was admitted to the ICU, given p.r.n. Ativan for agitation as well as aggressive fluid resuscitation and 2 L of normal saline bolus, placed on seizure precautions as well as aspiration precautions, repleted his electrolytes, and watched closely for delirium tremens which he did go into. He got very agitated. He was continued on his Librium and Ativan as needed as well as his supplementation and benzodiazepine. He did require four-point restraints. He did pull his Anand catheter out at some point. He had some bleeding from his urethra. They were able to put it back in and it was irrigated. He was slowly starting to show less agitation. He did spike a fever. We checked a chest x-ray. He did appear to have pneumonia and was started on antibiotics. He was able to come out of his four-point restraints. He was eating. He was more awake and alert. He was still having some visual hallucinations but calm. He was able to be moved out of ICU to the floor. Physical Therapy was consulted to work with him. He did become very cooperative, very pleasant. His visual hallucinations did stop. He did work with Physical Therapy. Again the patient is homeless. He lives in a tent in the [facility]. He has a daughter. His plan is to go to the [facility] at discharge. He smokes marijuana and drinks alcohol. He is willing to stop those. We did consult Urology in reference to his gross hematuria. They felt that since it was clearing it was secondary to trauma and that there was no intervention needed. Mr. Alegria is appropriate for discharge today. He is being discharged to the [facility]. VITAL SIGNS ON DISCHARGE: Temperature is 97.4 degrees, heart rate 91, respirations 20, blood pressure 112/70, O2 is 95% on room air. DISCHARGE DIET: Regular. DISCHARGE MEDICATIONS: 1. Norvasc 5 mg p.o. daily. 2. Librium 10 mg p.o. t.i.d. 3. Pepcid 20 mg p.o. b.i.d. 4. Nasonex 1 spray nasally daily. 5. Centrum 1 each p.o. daily. 6. Vitamin D 100 mg p.o. daily. 7. Ultram 50 mg p.o. t.i.d. p.r.n. FOLLOWUP: Mr. Alegria is being discharged to the [facility]. He has been educated about alcohol abstinence daily as well as smoking cessation with marijuana. He is in agreement that he needs to quit and will quit. He can return to the ED for any worsening of symptoms. He will follow up with a primary care physician, for which a list was provided to him, within 1 week. DISCHARGE TIME: 30 minutes. Dictated by JAYDEN Barillas for Cole Cardoso MD cc: Cole Cardoso MD
== END 2016-11-23 16:57 | disposition home or self-care (01) ==
LOC: ED 20:56 → ICU 22:47 → SUATTDRO 22:47 → ICU 23:26 → 3N 11-20 16:49
PROVIDERS: ATTEND Internal Medicine